=== PATIENT | male | born 1960 | race Caucasian/White ===

== ENCOUNTER 2017-01-08 08:51 | Emergency (ER) | payer MEDICARE, MEDICAID ==
--- NOTE | 2017-01-08 09:38 | ER Document Report ---
ED Medical Screen (RME) - General Chief Complaint: Fall Injury Stated Complaint: FALL/HEAD LACERATION Time Seen by Provider: 01/08/17 09:35 Mode of Arrival: Wheelchair Information source: Patient, Friend TRAVEL OUTSIDE OF THE [place] IN LAST 30 DAYS: No - HPI Patient complains to provider of: fall; cut head Onset: Just prior to arrival - pt. is member of prison who fell earlier today and cut his head. No LOC. Tet. UTD - Related Data Allergies/Adverse Reactions: No Known Allergies Allergy (Verified 01/08/17 08:58) Past Medical History - Social History Chew tobacco use (# tins/day): No Frequency of alcohol use: None Drug Abuse: None Neurological Medical History: Reports: Hx Seizures Renal/ Medical History: Denies: Hx Peritoneal Dialysis Psychiatric Medical History: Reports: Hx Schizophrenia - Immunizations Immunizations up to date: Yes Hx Diphtheria, Pertussis, Tetanus Vaccination: Yes Physical Exam - Vital signs Vitals: Temp Pulse Resp BP Pulse Ox 98.8 F 60 16 124/76 99 01/08/17 08:54 01/08/17 08:54 01/08/17 08:54 01/08/17 08:54 01/08/17 08:54 Course - Vital Signs Vital signs: Temp Pulse Resp BP Pulse Ox 98.8 F 60 16 124/76 99 01/08/17 08:54 01/08/17 08:54 01/08/17 08:54 01/08/17 08:54 01/08/17 08:54
--- NOTE | 2017-01-08 10:40 | ER Document Report ---
ED General - General Chief Complaint: Fall Injury Stated Complaint: FALL/HEAD LACERATION Time Seen by Provider: 01/08/17 09:35 Mode of Arrival: Wheelchair Information source: Patient, Relative Notes: 56-year-old male presents after falling in the bathtub striking back of his head. Patient denies any neck pain or any other injuries family member states he is acting appropriately and otherwise looks well patient denies any pain Denies any LOC TRAVEL OUTSIDE OF THE [place] IN LAST 30 DAYS: No - HPI Onset: Just prior to arrival Onset/Duration: Sudden Quality of pain: No pain Severity: Mild Pain Level: Denies Associated symptoms: None Exacerbated by: Denies Relieved by: Denies Similar symptoms previously: Yes Recently seen / treated by doctor: Yes - Related Data Allergies/Adverse Reactions: No Known Allergies Allergy (Verified 01/08/17 08:58) Past Medical History - General Information source: Patient, Friend - Social History Smoking Status: Never Smoker Cigarette use (# per day): No Chew tobacco use (# tins/day): No Smoking Education Provided: No Frequency of alcohol use: None Drug Abuse: None Family History: Reviewed & Not Pertinent Neurological Medical History: Reports: Hx Seizures Renal/ Medical History: Denies: Hx Peritoneal Dialysis Psychiatric Medical History: Reports: Hx Schizophrenia - Immunizations Immunizations up to date: Yes Hx Diphtheria, Pertussis, Tetanus Vaccination: Yes Review of Systems - Review of Systems Notes: REVIEW OF SYSTEMS: CONSTITUTIONAL : Denies fever, chills, or sweats. Denies recent illness. EENT: Denies eye, ear, throat, or mouth pain or symptoms. Denies nasal or sinus congestion or discharge. Denies throat, tongue, or mouth swelling or difficulty swallowing. CARDIOVASCULAR: Denies chest pain. Denies palpitations or racing or irregular heart beat. Denies ankle edema. RESPIRATORY: Denies cough, cold, or chest congestion. Denies shortness of breath, difficulty breathing, or wheezing. GASTROINTESTINAL: Denies abdominal pain or distention. Denies nausea, vomiting , or diarrhea. Denies blood in vomitus, stools, or per rectum. Denies black, tarry stools. Denies constipation. GENITOURINARY: Denies difficulty urinating, painful urination, burning, frequency, blood in urine, or discharge. MUSCULOSKELETAL: Denies back or neck pain or stiffness. Denies joint pain or swelling. SKIN: Denies rash, lesions or sores. HEMATOLOGIC : Denies easy bruising or bleeding. LYMPHATIC: Denies swollen, enlarged glands. NEUROLOGICAL: Admits to head injury PSYCHIATRIC: Denies anxiety or stress. Denies depression, suicidal ideation, or homicidal ideation. ALL OTHER SYSTEMS REVIEWED AND NEGATIVE. Dictation was performed using [employer] voice recognition software PHYSICAL EXAMINATION: GENERAL: Well-appearing, well-nourished and in no acute distress. HEAD: laceration EYES: Pupils equal round and reactive to light, extraocular movements intact, sclera anicteric, conjunctiva are normal. ENT: Nares patent, oropharynx clear without exudates. Moist mucous membranes. NECK: Normal range of motion, supple without lymphadenopathy LUNGS: Breath sounds clear to auscultation bilaterally and equal. No wheezes rales or rhonchi. HEART: Regular rate and rhythm without murmurs ABDOMEN: Soft, nontender, nondistended abdomen. No guarding, no rebound. No masses appreciated. Musculoskeletal: Normal range of motion, no pitting or edema. No cyanosis. NEUROLOGICAL: Cranial nerves grossly intact. Normal speech, normal gait. Normal sensory, motor exams PSYCH: Normal mood, normal affect. SKIN: 2 lacerations on scalpe, one is 8 cm wide the medial one is 6 cm narrow Physical Exam - Vital signs Vitals: Temp Pulse Resp BP Pulse Ox 98.8 F 60 16 124/76 99 01/08/17 08:54 01/08/17 08:54 01/08/17 08:54 01/08/17 08:54 01/08/17 08:54 Course - Re-evaluation Re-evalutation: 01/08/17 11:07 Physical examination noted no significant abnormality, patient otherwise looks well, I do not believe imaging is necessary at this time. The area was cleansed pretty were placed with no difficulty After performing a Medical Screening Examination, I estimate there is LOW risk for ACUTE GLAUCOMA, TEMPORAL ARTERITIS, MENINGITIS, INCRANIAL HEMORRHAGE, or ISCHEMIC STROKE thus I consider the discharge disposition reasonable. I have reevaluated this patient multiple times and no significant life threatening changes are noted. The patient and I have discussed the diagnosis and risks, and we agree with discharging home with close follow-up with the understanding that symptoms and presentations can change. We also discussed returning to the Emergency Department immediately if new or worsening symptoms occur. We have discussed the symptoms which are most concerning (e.g., changing or worsening symptoms, new numbness or weakness, vomiting, fever) that necessitate immediate return. - Vital Signs Vital signs: Temp Pulse Resp BP Pulse Ox 98.8 F 60 16 124/76 99 01/08/17 08:54 01/08/17 08:54 01/08/17 08:54 01/08/17 08:54 01/08/17 08:54 Procedures - Laceration/Wound Repair Upper Head Time completed: 11:00 Wound length (cm): 6 Wound's Depth, Shape: Into muscle, Irregular, Flap Laceration pre-procedure: Sterile PPE donned Wound explored: Clean, No foreign body removed Wound Debrided: Minimal Wound Repaired With: Pretty Number of Sutures: 1 Right Head Time completed: 11:05 Wound length (cm): 8 Wound's Depth, Shape: Irregular, Flap Laceration pre-procedure: Sterile PPE donned, Sterile drapes applied Wound explored: Clean, No foreign body removed Irrigated w/ Saline (mLs): 500 Wound Debrided: Minimal Wound Repaired With: Pretty Number of Sutures: 4 Discharge - Discharge Clinical Impression: Head injury Qualifiers: Encounter type: initial encounter Qualified Code(s): S09.90XA - Unspecified injury of head, initial encounter Scalp laceration Qualifiers: Encounter type: initial encounter Qualified Code(s): S01.01XA - Laceration without foreign body of scalp, initial encounter Condition: Stable Disposition: HOME, SELF-CARE Instructions: Laceration Care ([facility]), Soap Cleansing ([facility]) Additional Instructions: Follow-up in 5 days for removal of pretty or immediately if there is any sign of infection
[2017-01-08 11:08] VITALS: BP 130/108
== END 2017-01-08 11:09 | disposition home or self-care (01) ==
LOC: ER 08:51
PROC: 0HQ0XZZ Repair Scalp Skin, External Approach (ICD-10-PCS; principal; 2017-01-08)
DX: S09.90XA Unspecified injury of head, initial encounter (principal); S01.01XA Laceration without foreign body of scalp, initial encounter; W01.10XA Fall on same level from slipping, tripping and stumbling with subsequent striking against unspecified object, initial encounter; Y93.E1 Activity, personal bathing and showering
CPT/HCPCS: 99283

== ENCOUNTER 2017-01-16 16:48 | Emergency (ER) | payer MEDICARE, MEDICAID ==
[2017-01-16 16:52] VITALS: BP 120/71
--- NOTE | 2017-01-16 17:01 | ER Document Report ---
ED Suture/Wound Recheck - General Chief Complaint: Staple Removal Stated Complaint: SUTURE REMOVAL Time Seen by Provider: 01/16/17 16:54 Notes: Patient is a 56-year-old male who presents with 1 of his guardians from his home facility for staple removal. Patient was evaluated here on January 08 and had 5 pretty placed in his scalp after a fall. Denies any fevers, chills, pain, drainage. TRAVEL OUTSIDE OF THE [place] IN LAST 30 DAYS: No - Related Data Allergies/Adverse Reactions: No Known Allergies Allergy (Verified 01/08/17 08:58) Past Medical History - Social History Smoking Status: Unknown if Ever Smoked Family History: Reviewed & Not Pertinent Neurological Medical History: Reports: Hx Seizures Renal/ Medical History: Denies: Hx Peritoneal Dialysis Psychiatric Medical History: Reports: Hx Schizophrenia - Immunizations Immunizations up to date: Yes Hx Diphtheria, Pertussis, Tetanus Vaccination: Yes Review of Systems - Review of Systems Constitutional: No symptoms reported Skin: See HPI -: Yes All other systems reviewed and negative Physical Exam - Vital signs Vitals: Temp Pulse Resp BP Pulse Ox 98.6 F 67 18 120/71 98 01/16/17 16:50 01/16/17 16:50 01/16/17 16:50 01/16/17 16:50 01/16/17 16:50 - General General appearance: Appears well, Alert In distress: None - HEENT Head: Normocephalic, Atraumatic. No: Open wounds - Neurological Neuro grossly intact: Yes Cognition: Normal Orientation: AAOx4 James Coma Scale Eye Opening: Spontaneous [place] Coma Scale Verbal: Oriented James Coma Scale Motor: Obeys Commands James Coma Scale Total: 15 - Skin Skin Temperature: Warm Skin Moisture: Dry Skin Color: Normal Skin Turgor: Elastic Skin irregularity: Laceration - Laceration measuring approximately 1/2 cm closed with 5 pretty without any signs of dehiscence, cellulitis, induration, drainage. Course - Re-evaluation Re-evalutation: 01/16/17 17:09 Patient is a 56-year-old male is hemodynamic stable, no acute distress afebrile. Presented for suture removal. 5 pretty were removed at the bedside tolerated well. No evidence of dehiscence or underlying infection. Post suture removal instructions given to guardian at the bedside. Stable for discharge home - Vital Signs Vital signs: Temp Pulse Resp BP Pulse Ox 98.6 F 67 18 120/71 98 01/16/17 16:50 01/16/17 16:50 01/16/17 16:50 01/16/17 16:50 01/16/17 16:50 Discharge - Discharge Clinical Impression: Removal of pretty Condition: Good Disposition: HOME, SELF-CARE Instructions: Suture Removal Referrals: HAWK MARTINEZ MD [Primary Care Provider] - Follow up as needed
== END 2017-01-16 17:24 | disposition home or self-care (01) ==
LOC: ER 16:48
DX: S01.01XD Laceration without foreign body of scalp, subsequent encounter (principal); W19.XXXD Unspecified fall, subsequent encounter

== ENCOUNTER 2017-02-06 14:36 | Emergency (ER) | payer MEDICARE, MEDICAID | END 2017-02-06 14:52 | disposition left against medical advice (07) | LOC: ER 14:36 | DX: Z53.21 Procedure and treatment not carried out due to patient leaving prior to being seen by health care provider (principal) ==

== ENCOUNTER → 2018-01-01 | Outpatient (CLI) | payer MEDICARE, MEDICAID ==
[2018-01-01 17:20] LABS: ALANINE AMINOTRANSFERASE 67 U/L (21-72); ALKALINE PHOSPHATASE 69 U/L (38-126); ANION GAP 12 (5-19); ASPARTATE AMINO TRANSFERASE 80 U/L (17-59); BILIRUBIN,DIRECT 0.3 mg/dL (0.0-0.4); BILIRUBIN,TOTAL 0.4 mg/dL (0.2-1.3); BLOOD UREA NITROGEN 13 mg/dL (7-20); CALCIUM 9.2 mg/dL (8.4-10.2); CARBON DIOXIDE 22 mmol/L (22-30); CHLORIDE 110 mmol/L (98-107); GLUCOSE 106 mg/dL (75-110); POTASSIUM 4.3 mmol/L (3.6-5.0); SODIUM 143.8 mmol/L (137-145); TOTAL PROTEIN 7.8 g/dL (6.3-8.2)
== END ==
LOC: OD 15:54
PROVIDERS: ATTEND Specialist
DX: G40.89 Other seizures (principal); Z79.899 Other long term (current) drug therapy
CPT/HCPCS: 36415; 80053; 80164